=== PATIENT | female | born 1945 | race Caucasian/White ===

== ENCOUNTER 2022-04-29 08:53 | Inpatient (IN) | payer MEDICARE, SELFPAY ==
[2022-04-29] MEDS ORDERED: Ketorolac Tromethamine 30 MG/ML VIAL ONE (09:34)
[2022-04-29] MEDS ORDERED: Morphine 4 MG/ML VIAL ONE (10:20)
[2022-04-29 10:37] LABS: #Lymphocytes 0.5 thou/uL (1.20-3.40); #Monocytes 0.4 thou/uL (0.11-0.59); #Neutrophils 16.5 thou/uL (1.40-6.50); %Eosinophils 0.1 % (0.0-10.0); %Lymphocytes 2.8 % (21.0-51.0); %Monocytes 2.5 % (0.0-10.0); %Neutrophils 94.6 % (42.0-75.0); Hemoglobin 13.7 g/dL (12.0-16.0); Mean Corpuscular HGB CONC 34.9 g/dL (32.0-36.0); Mean Corpuscular Hemoglobin 31.5 pg (27.0-31.0); Mean Corpuscular Volume 90.3 fl (78.0-98.0); Platelet Count 299 thou/uL (130-400); RBC Distribution Width 11.7 % (11.5-14.5); Red Blood Cell (RBC) Count 4.35 mill/uL (4.20-5.40); White Blood Cell (WBC) Count 17.4 thou/uL (4.8-10.8)
[2022-04-29 10:56] LABS: ALT (SGPT) 21 U/L (8-55); AST (SGOT) 17 U/L (5-34); Albumin 3.9 g/dL (3.4-4.8); Alkaline Phosphatase 102 U/L (40-110); Anion Gap 18 mmol/L (10-20); BUN (Urea Nitrogen) 15 mg/dL (9.8-20.1); Bilirubin, Total 0.9 mg/dL (0.2-1.2); Calc. Creatinine Clearance 0 mL/min (70-130); Calcium 9.1 mg/dL (7.8-10.44); Carbon Dioxide 21 mmol/L (23-31); Chloride 103 mmol/L (98-107); Estimated GFR 71; Globulin 3.3 g/dL (2.4-3.5); Glucose 381 mg/dL (83-110); Magnesium 1.6 mg/dL (1.6-2.6); Potassium 3.6 mmol/L (3.5-5.1); Protein, Total 7.2 g/dL (5.8-8.1); Sodium 138 mmol/L (136-145)
[2022-04-29 11:05] LABS: INR-International Normal Ratio 1.2; PTT 31.8 sec (22.9-36.1); Prothrombin Time 15.2 sec (12.0-14.7)
[2022-04-29 11:13] LABS: Phosphorus 3.2 mg/dL (2.3-4.7)
[2022-04-29] MEDS ORDERED: Insulin Regular 300 UNITS/3 ML VIAL SC PRN (12:00)
[2022-04-29] MEDS ORDERED: TETANUS, DIPHTHERIA TOX,ADULT (TDVAX) 0.5 ML VIAL IM ONE (12:00)
[2022-04-29] MEDS ORDERED: hydrALAZINE 20 MG/ML VIAL SLOW IVP PRN (12:00)
[2022-04-29] MEDS ORDERED: Morphine 4 MG/ML VIAL SLOW IVP PRN (12:00)
[2022-04-29] MEDS ORDERED: Dextrose 5% in Water 1,000 ML IV PRN (12:00)
[2022-04-29] MEDS ORDERED: Sodium Chloride 0.9% 1,000 ML IV SCH (12:00)
[2022-04-29] MEDS ORDERED: Dextrose 50% Abboject 50 ML SYRINGE SLOW IVP PRN (12:00)
[2022-04-29] MEDS ORDERED: Ondansetron PF 4 MG/2 ML Vial IVP PRN (12:00)
[2022-04-29] MEDS ORDERED: traMADol HCl 50 MG TAB PO PRN (12:04)
[2022-04-29] MEDS ORDERED: Cyclobenzaprine 10 MG TAB PO PRN (12:04)
[2022-04-29 12:16] LABS: Hemoglobin A1c 10.4 % (4.0-6.0)
[2022-04-29] MEDS ORDERED: Amlodipine 5 MG TAB PO SCH (12:30)
[2022-04-29] MEDS ORDERED: Losartan 25 MG TAB PO SCH (12:30)
[2022-04-29 14:36] VITALS: BMI 21.5
[2022-04-29] MEDS ORDERED: Potassium Phosphate 15 MMOL in Sodium Chloride 0.9% 250 ML 250 ML IVPB SCH (15:15)
[2022-04-29] MEDS: traMADol HCl 50 MG TAB PO SCH ×2 (15:53→21:25)
[2022-04-29] MEDS: Acetaminophen 500 MG TAB PO SCH ×2 (15:54→21:24)
[2022-04-29 16:43] LABS: SARS-CoV-2 NAA Rapid Test Not Detected (NotDetected)
[2022-04-29 16:54] LABS: Bacteria/HPF None Seen HPF (None Seen); Bilirubin Negative (Negative); Blood, Urine 2+ (Negative); Clarity Clear (Clear); Glucose, Urine (Dipstick) Greater than 1000 mg/dL (Negative); Ketone, Urine 60 mg/dL (Negative); Leukocyte Negative Leu/uL (Negative); Nitrite Negative (Negative); Protein, Urine (Dipstick) 50 mg/dL (Neg-Trace); Squamous Epithelial None Seen HPF (0-3); Urobilinogen Normal mg/dL (Less than 2); WBC/HPF 0-3 HPF (0-3)
[2022-04-29 16:56] LABS: Urine Culture Reflex No No
[2022-04-29] MEDS: Insulin Regular 300 UNITS/3 ML VIAL SC PRN (17:58)
[2022-04-29] MEDS ORDERED: Ibuprofen 200 MG TAB PO PRN (18:27)
[2022-04-29] MEDS: Famotidine 20 MG TAB PO SCH (21:25)
[2022-04-29] MEDS: Donepezil HCl 10 MG TAB PO SCH (21:25)
[2022-04-29] MEDS: Senokot S 8.6-50 MG TAB PO SCH (21:25)
[2022-04-29] MEDS: Citalopram 20 MG TAB PO SCH (21:25)
[2022-04-30] MEDS: Acetaminophen 500 MG TAB PO SCH ×3 (02:18→21:01)
[2022-04-30] MEDS: traMADol HCl 50 MG TAB PO SCH ×4 (03:11→21:02)
[2022-04-30 05:58] LABS: #Lymphocytes 1.1 thou/uL (1.20-3.40); #Monocytes 0.5 thou/uL (0.11-0.59); #Neutrophils 7.3 thou/uL (1.40-6.50); %Basophils 0.3 % (0.0-1.0); %Eosinophils 0.4 % (0.0-10.0); %Lymphocytes 12.5 % (21.0-51.0); %Monocytes 5.6 % (0.0-10.0); %Neutrophils 81.2 % (42.0-75.0); Hemoglobin 11.2 g/dL (12.0-16.0); Mean Corpuscular HGB CONC 33.3 g/dL (32.0-36.0); Mean Corpuscular Hemoglobin 30.6 pg (27.0-31.0); Mean Corpuscular Volume 91.8 fl (78.0-98.0); Mean Platelet Volume 6.8 fL (7.4-10.4); Platelet Count 222 thou/uL (130-400); RBC Distribution Width 12.1 % (11.5-14.5); Red Blood Cell (RBC) Count 3.67 mill/uL (4.20-5.40); White Blood Cell (WBC) Count 8.9 thou/uL (4.8-10.8)
[2022-04-30 06:23] LABS: Anion Gap 12 mmol/L (10-20); BUN (Urea Nitrogen) 25 mg/dL (9.8-20.1); Calc. Creatinine Clearance 52 mL/min (70-130); Calcium 8.6 mg/dL (7.8-10.44); Carbon Dioxide 22 mmol/L (23-31); Chloride 111 mmol/L (98-107); Estimated GFR 81; Glucose 208 mg/dL (83-110); Magnesium 1.9 mg/dL (1.6-2.6); Phosphorus 3.5 mg/dL (2.3-4.7); Potassium 3.4 mmol/L (3.5-5.1); Sodium 142 mmol/L (136-145)
[2022-04-30] MEDS ORDERED: Clindamycin/D5W 900 MG in Premix Bag 1 BAG IVPB SCH (07:15)
[2022-04-30] MEDS ORDERED: Amlodipine 5 MG TAB PO SCH (09:00)
[2022-04-30] MEDS ORDERED: Losartan 25 MG TAB PO SCH (09:00)
[2022-04-30] MEDS ORDERED: Magnesium 2 GM/50 ML(in water) 2 GM in Premix Bag 1 BAG IVPB SCH (09:00)
[2022-04-30] MEDS: Amlodipine 5 MG TAB PO SCH (09:29)
[2022-04-30] MEDS ORDERED: Clindamycin/D5W 900 mg/50 ml Premix Bag ONE (13:14)
[2022-04-30] MEDS ORDERED: fentaNYL PF 100 MCG/2 ML SYRINGE ONE (13:23)
[2022-04-30] MEDS ORDERED: Phenylephrine 10 MG/ML VIAL ONE (13:23)
[2022-04-30] MEDS ORDERED: Rocuronium Bromide 10 MG/ML (10ML VIAL) ONE (13:38)
[2022-04-30] MEDS ORDERED: PROPOFOL 200 MG/20 ML VIAL ONE (13:38)
[2022-04-30] MEDS ORDERED: SUGAMMADEX SODIUM 200 MG/2 ML VIAL ONE (14:40)
[2022-04-30] MEDS ORDERED: FENTANYL 50 MCG/ML 1 ML VIAL ONE (15:29)
[2022-04-30] MEDS: Potassium Chloride 20 MEQ in Premix Bag 1 BAG IVPB SCH (16:58)
[2022-04-30] MEDS: Polyethylene Glycol 3350 17 GM Packet PO SCH (16:58)
[2022-04-30] MEDS: Senokot S 8.6-50 MG TAB PO SCH ×2 (16:59→21:01)
[2022-04-30] MEDS: Clindamycin/D5W 900 MG in Premix Bag 1 BAG IVPB SCH (21:01)
[2022-04-30] MEDS: Citalopram 20 MG TAB PO SCH (21:02)
[2022-04-30] MEDS: Insulin Glargine 30 UNITS/0.3 ML VIAL SC SCH (21:03)
[2022-04-30] MEDS: Donepezil HCl 10 MG TAB PO SCH (21:03)
[2022-04-30] MEDS: Famotidine 20 MG TAB PO SCH (22:09)
[2022-05-01] MEDS: Acetaminophen 500 MG TAB PO SCH ×4 (03:06→21:52)
[2022-05-01] MEDS: traMADol HCl 50 MG TAB PO SCH ×4 (03:07→21:53)
[2022-05-01] MEDS: Clindamycin/D5W 900 MG in Premix Bag 1 BAG IVPB SCH ×2 (05:11→13:32)
[2022-05-01 07:34] LABS: #Monocytes 0.8 thou/uL (0.11-0.59); #Neutrophils 6.2 thou/uL (1.40-6.50); %Basophils 0.2 % (0.0-1.0); %Eosinophils 0.3 % (0.0-10.0); %Lymphocytes 21.9 % (21.0-51.0); %Monocytes 8.5 % (0.0-10.0); %Neutrophils 69.1 % (42.0-75.0); Hemoglobin 10.4 g/dL (12.0-16.0); Mean Corpuscular HGB CONC 34.1 g/dL (32.0-36.0); Mean Corpuscular Hemoglobin 31.7 pg (27.0-31.0); Mean Platelet Volume 7.1 fL (7.4-10.4); Platelet Count 225 thou/uL (130-400); Red Blood Cell (RBC) Count 3.28 mill/uL (4.20-5.40)
[2022-05-01 07:56] LABS: Anion Gap 13 mmol/L (10-20); BUN (Urea Nitrogen) 17 mg/dL (9.8-20.1); Calc. Creatinine Clearance 59 mL/min (70-130); Calcium 8.3 mg/dL (7.8-10.44); Carbon Dioxide 21 mmol/L (23-31); Chloride 111 mmol/L (98-107); Estimated GFR 90; Glucose 141 mg/dL (83-110); Magnesium 1.8 mg/dL (1.6-2.6); Phosphorus 3.3 mg/dL (2.3-4.7); Sodium 142 mmol/L (136-145)
[2022-05-01] MEDS: Potassium Chloride 20 MEQ in Premix Bag 1 BAG IVPB SCH (08:28)
[2022-05-01] MEDS ORDERED: Potassium Chloride 20 MEQ TAB PO SCH (08:30)
[2022-05-01] MEDS: Amlodipine 5 MG TAB PO SCH (09:17)
[2022-05-01] MEDS: Enoxaparin Sodium 40 MG/0.4 ML SYRINGE SC SCH (09:17)
[2022-05-01] MEDS: Polyethylene Glycol 3350 17 GM Packet PO SCH (09:17)
[2022-05-01] MEDS: Senokot S 8.6-50 MG TAB PO SCH ×2 (09:18→21:52)
[2022-05-01] MEDS ORDERED: Potassium Chloride 20 MEQ in Premix Bag 1 BAG IVPB SCH (10:00)
[2022-05-01] MEDS: Insulin Regular 300 UNITS/3 ML VIAL SC PRN (11:04)
[2022-05-01] MEDS: Donepezil HCl 10 MG TAB PO SCH (21:52)
[2022-05-01] MEDS: Famotidine 20 MG TAB PO SCH (21:54)
[2022-05-01] MEDS: Insulin Glargine 30 UNITS/0.3 ML VIAL SC SCH (21:54)
[2022-05-01] MEDS: Citalopram 20 MG TAB PO SCH (21:54)
[2022-05-02] MEDS: traMADol HCl 50 MG TAB PO SCH ×4 (05:57→21:06)
[2022-05-02] MEDS: Acetaminophen 500 MG TAB PO SCH ×4 (06:06→21:06)
[2022-05-02 06:28] LABS: #Eosinphils 0.2 thou/uL (0.0-0.7); #Lymphocytes 1.5 thou/uL (1.20-3.40); #Monocytes 0.8 thou/uL (0.11-0.59); #Neutrophils 6.1 thou/uL (1.40-6.50); %Basophils 0.4 % (0.0-1.0); %Eosinophils 2.2 % (0.0-10.0); %Lymphocytes 17.7 % (21.0-51.0); %Monocytes 9.6 % (0.0-10.0); %Neutrophils 70.1 % (42.0-75.0); Hemoglobin 10.1 g/dL (12.0-16.0); Mean Corpuscular Hemoglobin 30.4 pg (27.0-31.0); Mean Corpuscular Volume 92.1 fl (78.0-98.0); Mean Platelet Volume 7.2 fL (7.4-10.4); Platelet Count 230 10x3/uL (130-400); RBC Distribution Width 11.8 % (11.5-14.5); Red Blood Cell (RBC) Count 3.32 mill/uL (4.20-5.40); White Blood Cell (WBC) Count 8.6 10x3/uL (4.8-10.8)
[2022-05-02] MEDS: Senokot S 8.6-50 MG TAB PO SCH ×2 (09:20→21:06)
[2022-05-02] MEDS: Polyethylene Glycol 3350 17 GM Packet PO SCH (09:20)
[2022-05-02] MEDS: Amlodipine 5 MG TAB PO SCH (09:21)
[2022-05-02] MEDS: Gabapentin 100 MG CAP PO SCH (09:21)
[2022-05-02] MEDS: Enoxaparin Sodium 40 MG/0.4 ML SYRINGE SC SCH (09:22)
[2022-05-02] MEDS ORDERED: Insulin Glargine 30 UNITS/0.3 ML VIAL SC SCH (21:00)
[2022-05-02] MEDS: Famotidine 20 MG TAB PO SCH (21:05)
[2022-05-02] MEDS: Citalopram 20 MG TAB PO SCH (21:06)
[2022-05-02] MEDS: Donepezil HCl 10 MG TAB PO SCH (21:07)
[2022-05-03] MEDS: traMADol HCl 50 MG TAB PO SCH ×3 (03:23→16:10)
[2022-05-03] MEDS: Acetaminophen 500 MG TAB PO SCH ×3 (03:23→14:45)
[2022-05-03] MEDS: Amlodipine 5 MG TAB PO SCH (10:21)
[2022-05-03] MEDS: Gabapentin 100 MG CAP PO SCH (10:23)
[2022-05-03] MEDS: Enoxaparin Sodium 40 MG/0.4 ML SYRINGE SC SCH (10:23)
[2022-05-03] MEDS: Senokot S 8.6-50 MG TAB PO SCH (10:24)
[2022-05-03] MEDS: Polyethylene Glycol 3350 17 GM Packet PO SCH (10:25)
[2022-05-03 15:34] VITALS: BP 146/82; TEMP 98.4
== END 2022-05-03 15:15 | DRG 522 ==
LOC: ERS 08:53 → SURG A 10:33
PROVIDERS: ADMIT Specialist; ATTEND Specialist
PROC: 0SRS0JZ Replacement of Left Hip Joint, Femoral Surface with Synthetic Substitute, Open Approach (ICD-10-PCS; principal; 2022-04-30)
DX: S72.012A Unspecified intracapsular fracture of left femur, initial encounter for closed fracture (principal); Z66 Do not resuscitate; E11.9 Type 2 diabetes mellitus without complications; E78.5 Hyperlipidemia, unspecified; I10 Essential (primary) hypertension; S01.01XA Laceration without foreign body of scalp, initial encounter; F03.90 Unspecified dementia, unspecified severity, without behavioral disturbance, psychotic disturbance, mood disturbance, and anxiety; W18.30XA Fall on same level, unspecified, initial encounter; D72.829 Elevated white blood cell count, unspecified; Z88.2 Allergy status to sulfonamides; Z88.1 Allergy status to other antibiotic agents; Z88.0 Allergy status to penicillin; Z88.6 Allergy status to analgesic agent; Z79.84 Long term (current) use of oral hypoglycemic drugs; Z79.899 Other long term (current) drug therapy
CPT/HCPCS: 36415; 36416; 70450; 71045; 72125; 72170; 80048; 80053; 81001; 83036; 83735; 84100; 84484; 85025; 85610; 85730; 86850; 86900; 86901; 87804; 90714; 93005; 93010; 94640; 96374; 96375; C1713; C1776; G0390; J1650; J1815; J1885; J2270; J2370; J2704; J3010; J3480; J3490; J7050; J7620; U0002

== ENCOUNTER 2022-08-18 22:29 | Emergency (ER) | payer BC, MEDICARE ==
[2022-08-18 23:33] LABS: #Basophils 0.1 thou/uL (0.0-0.2); #Eosinphils 0.1 thou/uL (0.0-0.7); #Lymphocytes 2.7 thou/uL (1.20-3.40); #Monocytes 0.7 thou/uL (0.11-0.59); #Neutrophils 6.8 thou/uL (1.40-6.50); %Basophils 0.6 % (0.0-1.0); %Eosinophils 0.9 % (0.0-10.0); %Lymphocytes 26.3 % (21.0-51.0); %Monocytes 6.9 % (0.0-10.0); %Neutrophils 65.3 % (42.0-75.0); Hemoglobin 10.9 g/dL (12.0-16.0); Mean Corpuscular HGB CONC 33.3 g/dL (32.0-36.0); Mean Corpuscular Hemoglobin 28.4 pg (27.0-31.0); Mean Corpuscular Volume 85.3 fl (78.0-98.0); Mean Platelet Volume 6.6 fL (7.4-10.4); Platelet Count 342 10x3/uL (130-400); RBC Distribution Width 13.3 % (11.5-14.5); Red Blood Cell (RBC) Count 3.85 mill/uL (4.20-5.40); White Blood Cell (WBC) Count 10.3 10x3/uL (4.8-10.8)
[2022-08-18 23:56] LABS: ALT (SGPT) 8 U/L (8-55); AST (SGOT) 12 U/L (5-34); Albumin 3.5 g/dL (3.4-4.8); Alkaline Phosphatase 98 U/L (40-110); Anion Gap 14 mmol/L (10-20); BUN (Urea Nitrogen) 13 mg/dL (9.8-20.1); Bilirubin, Total 0.2 mg/dL (0.2-1.2); Calc. Creatinine Clearance 0 mL/min (70-130); Carbon Dioxide 22 mmol/L (23-31); Chloride 106 mmol/L (98-107); Estimated GFR 91; Globulin 3.2 g/dL (2.4-3.5); Glucose 157 mg/dL (83-110); Potassium 3.7 mmol/L (3.5-5.1); Protein, Total 6.7 g/dL (5.8-8.1); Sodium 138 mmol/L (136-145)
== END 2022-08-19 00:35 ==
LOC: ERS 22:29
DX: S00.83XA Contusion of other part of head, initial encounter (principal); W18.30XA Fall on same level, unspecified, initial encounter
CPT/HCPCS: 36415; 70450; 72125; 80053; 85025; 93005